=== PATIENT | female | born 1955 | race Caucasian/White ===

== ENCOUNTER 2019-01-09 14:26 | Emergency (ER) | payer SELFPAY ==
[~2019-01-09] VITALS: Ht 162.6 cm; Wt 72.6 kg
--- NOTE | 2019-01-09 14:44 | NUR ---
Dr Moya at the bedside for MSE.
[2019-01-09] MEDS ORDERED: ACETAMINOPHEN ES 500 MG TABLET ONE (14:53)
[2019-01-09] MEDS ORDERED: ACETAMINOPHEN ES 500 MG TABLET PO ONE (15:00)
--- NOTE | 2019-01-09 15:01 | NUR ---
Pt out of ER for xray.
--- NOTE | 2019-01-09 15:17 | NUR ---
Pt back from xray, resting in the bed. Pt refused c spine xray, aware.
--- NOTE | 2019-01-09 15:54 | NUR ---
ER MD spoke to pt, regarding pt needing to have CT done. Pt agreed.
--- NOTE | 2019-01-09 16:02 | NUR ---
Pt refused to have Ct done, stating I will follow up w/ my Orthopedic DR. Dr Moya aware.
--- NOTE | 2019-01-09 16:06 | NUR ---
Patient does not wish to proceed with medical care recommended by Dr. Morgan). Patient given information related to possible complications, up to and including , which could occur as a result of leaving the hospital at this time. Patient verbalizes understanding of risks involved due to leaving against medical advice. Patient has signed AMA form.
[2019-01-09 16:08] VITALS: BP 139/80
--- NOTE | 2019-01-09 16:09 | NUR ---
Pt walked out of ER w/ steady gait.
== END 2019-01-09 16:10 | disposition home or self-care (01) ==
LOC: ER 14:26
DX: S32.018A Other fracture of first lumbar vertebra, initial encounter for closed fracture (principal); V49.9XXA Car occupant (driver) (passenger) injured in unspecified traffic accident, initial encounter; Y93.89 Activity, other specified; Y92.410 Unspecified street and highway as the place of occurrence of the external cause; Y99.8 Other external cause status
CPT/HCPCS: 71045; 72100; A4663; A9150

== ENCOUNTER 2024-11-13 16:47 | Emergency (ER) | payer MEDICARE, OTHER ==
[~2024-11-13] VITALS: Ht 162.6 cm; Wt 86.2 kg
[2024-11-13] MEDS ORDERED: IBUP-1957 PO (20:01)
[2024-11-13 20:55] VITALS: BP 150/76; TEMP 98.7; O2SAT 98
== END 2024-11-13 20:20 | disposition home or self-care (01) ==
LOC: ER 16:47
DX: S13.4XXA Sprain of ligaments of cervical spine, initial encounter (principal); S49.82XA Other specified injuries of left shoulder and upper arm, initial encounter; M54.50 Low back pain, unspecified; Z88.1 Allergy status to other antibiotic agents; V43.52XA Car driver injured in collision with other type car in traffic accident, initial encounter; Y93.89 Activity, other specified; Y92.89 Other specified places as the place of occurrence of the external cause; Y99.8 Other external cause status
CPT/HCPCS: A4606; A4663